=== PATIENT | female | born 1960 | race Caucasian/White ===

== ENCOUNTER 2020-03-20 09:50 | Observation (INO) | payer BC ==
[~2020-03-20] VITALS: Ht 168.9 cm; Wt 73.6 kg
--- NOTE | 2020-03-20 09:56 | PHYS DOC ---
Past History Additional Past Medical Histor: syncope Smoking: Non-smoker Drug Use: None General Adult EDM: Chief Complaint: SYNCOPE HPI: HPI: Patient is a 52-year-old female who arrives with a chief complaint of a near syncopal event. Patient had multiple episodes about a month ago and saw her primary physician who hooked up with event monitor. Patient had a minor episode about a week ago and then today at work had an episode where she felt dizzy and lightheaded and almost passed out. Patient denies any nausea vomiting. Patient denies any recent illnesses such as fever, chills, cough or shortness of breath. Patient denies any pain including chest pain or headache. Patient is feeling almost back to normal at this time. Review of Systems: Review of Systems: Constitutional: Denies fever or chills Eyes: Denies change in visual acuity HENT: Denies nasal congestion or sore throat Respiratory: Denies cough or shortness of breath Cardiovascular: Denies chest pain or edema GI: Denies abdominal pain, nausea, vomiting, bloody stools or diarrhea : Denies dysuria Musculoskeletal: Denies back pain or joint pain Integument: Denies rash Neurologic: Denies headache, focal weakness or sensory changes but patient had some transient dizziness which is since resolved Endocrine: Denies polyuria or polydipsia Lymphatic: Denies swollen glands Psychiatric: Denies depression or anxiety Current Medications: Current Meds: Laboratory Tests Test 03/20/20 10:13 03/20/20 10:16 Urine Collection Type Void Urine Color Yellow Urine Clarity Clear Urine pH 5.5 Urine Specific [place] 1.020 Urine Protein Neg Urine Glucose (UA) Neg mg/dL Urine Ketones (Stick) Neg mg/dL Urine Blood Trace Urine Nitrite Neg Urine Bilirubin Neg Urine Urobilinogen Dipstick 0.2 mg/dL Urine Leukocyte Esterase Mod Urine RBC Rare /HPF Urine WBC 5-10 /HPF Urine Squamous Epithelial Cells Few /LPF Urine Transitional Epithelial Cells Occ /LPF Urine Bacteria 0 /HPF White Blood Count 4.1 x10^3/uL Red Blood Count 4.83 x10^6/uL Hemoglobin 14.2 g/dL Hematocrit 43.2 % Mean Corpuscular Volume 89 fL Mean Corpuscular Hemoglobin 30 pg Mean Corpuscular Hemoglobin Concent 33 g/dL Red Cell Distribution Width 13.6 % Platelet Count 262 x10^3/uL Neutrophils (%) (Auto) 52 % Lymphocytes (%) (Auto) 39 % Monocytes (%) (Auto) 6 % Eosinophils (%) (Auto) 2 % Basophils (%) (Auto) 1 % Neutrophils # (Auto) 2.2 x10^3uL Lymphocytes # (Auto) 1.6 x10^3/uL Monocytes # (Auto) 0.3 x10^3/uL Eosinophils # (Auto) 0.1 x10^3/uL Basophils # (Auto) 0.0 x10^3/uL Sodium Level 138 mmol/L Potassium Level 3.5 mmol/L Chloride Level 101 mmol/L Carbon Dioxide Level 29 mmol/L Anion Gap 8 Blood Urea Nitrogen 17 mg/dL Creatinine 0.6 mg/dL Estimated GFR (Cockcroft-Gault) 102.7 Glucose Level 100 mg/dL Calcium Level 8.8 mg/dL Physical Exam: PE: Constitutional: Well developed, well nourished, no acute distress, non-toxic appearance. [] HENT: Normocephalic, atraumatic, bilateral external ears normal, no trismus, nose normal. [] Eyes: PERRLA, EOMI, conjunctiva normal, no discharge. [] Neck: Normal range of motion, no tenderness, supple, no stridor. [] Cardiovascular:Heart rate regular rhythm, peripheral pulse intact cap refill is brisk Lungs & Thorax: Bilateral breath sounds clear, no respiratory distress Abdomen: soft, no tenderness, no masses, no pulsatile masses. [] Skin: Warm, dry, no erythema, no rash. [] Back: No tenderness, no CVA tenderness. [] Extremities: No tenderness, no cyanosis, no clubbing, ROM intact, no edema. [] Neurologic: Alert and oriented X 3, normal motor function, normal sensory function, no focal deficits noted. [] Psychologic: Affect normal, judgement normal, mood normal. [] Current Patient Data: Labs: Laboratory Tests Test 03/20/20 10:13 03/20/20 10:16 Urine Collection Type Void Urine Color Yellow Urine Clarity Clear Urine pH 5.5 Urine Specific [place] 1.020 Urine Protein Neg Urine Glucose (UA) Neg mg/dL Urine Ketones (Stick) Neg mg/dL Urine Blood Trace Urine Nitrite Neg Urine Bilirubin Neg Urine Urobilinogen Dipstick 0.2 mg/dL Urine Leukocyte Esterase Mod Urine RBC Rare /HPF Urine WBC 5-10 /HPF Urine Squamous Epithelial Cells Few /LPF Urine Transitional Epithelial Cells Occ /LPF Urine Bacteria 0 /HPF White Blood Count 4.1 x10^3/uL Red Blood Count 4.83 x10^6/uL Hemoglobin 14.2 g/dL Hematocrit 43.2 % Mean Corpuscular Volume 89 fL Mean Corpuscular Hemoglobin 30 pg Mean Corpuscular Hemoglobin Concent 33 g/dL Red Cell Distribution Width 13.6 % Platelet Count 262 x10^3/uL Neutrophils (%) (Auto) 52 % Lymphocytes (%) (Auto) 39 % Monocytes (%) (Auto) 6 % Eosinophils (%) (Auto) 2 % Basophils (%) (Auto) 1 % Neutrophils # (Auto) 2.2 x10^3uL Lymphocytes # (Auto) 1.6 x10^3/uL Monocytes # (Auto) 0.3 x10^3/uL Eosinophils # (Auto) 0.1 x10^3/uL Basophils # (Auto) 0.0 x10^3/uL Sodium Level 138 mmol/L Potassium Level 3.5 mmol/L Chloride Level 101 mmol/L Carbon Dioxide Level 29 mmol/L Anion Gap 8 Blood Urea Nitrogen 17 mg/dL Creatinine 0.6 mg/dL Estimated GFR (Cockcroft-Gault) 102.7 Glucose Level 100 mg/dL Calcium Level 8.8 mg/dL Vital Signs: Vital Signs Date Time Temp Pulse Resp B/P (MAP) Pulse Ox O2 Delivery O2 Flow Rate FiO2 03/20/20 11:22 52 14 157/75 (102) 97 Room Air EKG: EKG: EKG interpreted by me normal sinus rhythm with a rate of 63 left axis deviation, normal ST segments, normal intervals [] Radiology/Procedures: Radiology/Procedures: [] Heart Score: Risk Factors: Risk Factors: DM, Current or recent (<one month) smoker, HTN, HLP, family history of CAD, obesity. Risk Scores: Score 0 - 3: 2.5% MACE over next 6 weeks - Discharge Home Score 4 - 6: 20.3% MACE over next 6 weeks - Admit for Clinical Observation Score 7 - 10: 72.7% MACE over next 6 weeks - Early Invasive Strategies Course & Med Decision Making: Course & Med Decision Making Pertinent Labs and Imaging studies reviewed. (See chart for details) [] I personally called [employer] monitoring and spoke with the community engagement representative who said with her model that they were unable to remotely check for an arrhythmia and would have to check when the monitor symptomatic 60-year-old female presents with a near syncopal event. Patient has had several episodes of the last month with similar symptoms. Patient appears back to her normal baseline at the current time. I discussed the case with her primary care physician, Dr. CARRION who suggest admission to the hospital. Discussed case with Dr. Lawson who will admit. Dragon Disclaimer: Fady Disclaimer: This electronic medical record was generated, in whole or in part, using a voice recognition dictation system. Departure Departure: Impression: Primary Impression: Near syncope Disposition: ADMITTED INPT THIS HOSP Admitting Physician: Messi Lawson Condition: STABLE Referrals: KATALINA CARRION (PCP) SILVER JOVEL MD Mar 20, 2020 09:56
[2020-03-20 10:40] LABS: BASO % 1 % (0-3); EOS # 0.1 x10^3/uL (0.0-0.7); EOS % 2 % (0-3); HEMATOCRIT 43.2 % (36.0-47.0); HEMOGLOBIN 14.2 g/dL (12.0-15.5); LYMPH # 1.6 x10^3/uL (1.0-4.8); LYMPH % 39 % (24-48); MEAN CORPUSCULAR HEMOGLOBIN 30 pg (25-35); MEAN CORPUSCULAR HGB CONC 33 g/dL (31-37); MEAN CORPUSCULAR VOLUME 89 fL (79-100); MONO # 0.3 x10^3/uL (0.0-1.1); MONO % 6 % (0-9); NEUT # 2.2 x10^3uL (1.8-7.7); NEUT % 52 % (31-73); PLATELET COUNT 262 x10^3/uL (140-400); RED BLOOD COUNT 4.83 x10^6/uL (3.50-5.40); RED CELL DISTRIBUTION WIDTH 13.6 % (11.5-14.5); WHITE BLOOD COUNT 4.1 x10^3/uL (4.0-11.0)
[2020-03-20 10:46] LABS: CALCIUM 8.8 mg/dL (8.5-10.1); CREATININE 0.6 mg/dL (0.6-1.0); GFR 102.7; POTASSIUM 3.5 mmol/L (3.5-5.1)
[2020-03-20 10:49] LABS: CLARITY,URINE CLEAR; COLOR,URINE YELLOW
[2020-03-20 10:50] LABS: BACTERIA,URINE 0 /HPF (0-FEW); BILIRUBIN,URINE NEG (NEG); GLUCOSE,URINE NEG (NEG); NITRITE,URINE NEG (NEG); RBC,URINE RARE /HPF (0-2); SQUAMOUS EPITHELIAL CELL,UR FEW /LPF; UROBILINOGEN,URINE 0.2 mg/dL (0.2 mg/dL)
[2020-03-20] MEDS ORDERED: ONDANSETRON PF 4 MG/2 ML VIAL. IVP PRN (12:15)
--- NOTE | 2020-03-20 12:41 | RAD ---
Examination: XR CHEST 1V History: Reason: NEAR SYNCOPE, WEARS HEART MONITOR COULDN'T REMOVE / Spl. Instructions: / History: Comparison/Correlation: None Findings: Portable upright frontal view of the chest was obtained. Overlying electronic device at the left mid thoracic level obscures evaluation of the left perihilar lung field.. Heart size and pulmon ramo vasculature are normal. No infiltrate identified. No pneumothorax. Bony structures are intact. No pleural effusion. Impression: No suspicious process. Electronically signed by: Rom Kendall MD (03/20/2020 12:39 PM) [id number]
[2020-03-20 13:43] VITALS: BP 116/78
[2020-03-20 13:48] VITALS: BP_SYST 114; BP_SYST 129; BP_DIAS 74; BP_DIAS 77
--- NOTE | 2020-03-20 14:04 | NUR ---
NSG NOTE; ADMISSION ADMIT TO ROOM 111 AT 1255 FROM ED VIA CART C/O SYNCOPAL EPISODE AT WORK AFTER FEELING BRIEF DIZZINESS W/ FLUTTERY STOMACH SENSATIONS
[2020-03-20] MEDS ORDERED: LISD60CA PO (14:14)
--- NOTE | 2020-03-20 14:36 | EKG ---
[address] [address] Test Date: 2020-03-20 Test Time: 10:18:12 Pat Name: JOSHUA DEMPSEY Department: Room: Gender: F Vehicle Safety Inspector: SAMIR : 1960 Requested By: SILVER JOVEL Order Number: [id number] Reading MD: Measurements Intervals [place] Rate: 63 P: 50 TN: 170 QRS: -28 QRSD: 100 T: 28 QT: 424 QTc: 437 Interpretive Statements SINUS RHYTHM LEFTWARD AXIS QRS(T) CONTOUR ABNORMALITY CONSISTENT WITH ANTEROSEPTAL INFARCT PROBABLY OLD ABNORMAL ECG RI6.02 No previous ECG available for comparison
--- NOTE | 2020-03-20 16:22 | PDOC2 ---
CARDIAC CONSULT DATE OF CONSULT DOS: DATE: 03/20/20 TIME: 16:17 REASON FOR CONSULT Reason for Consult Near syncope REFERRING PHYSICIAN Referring Physician Dr. Santana SOURCE Source: Chart review, Patient HPI History of Present Illness The patient is a 60-year-old female who was admitted from the emergency room for episodes of near syncope. Patient reports that she had multiple episodes of near syncope starting approximately 1 month ago. Her first two eposodes were on a plane returning from [place] and she reports two episodes of syncope. She has not had other episodes of syncope since that time but has had near syncope. An outpatient monitor was placed but no readings are available. She also had an episode a week o ago and then a more severe episode today. She denies chest pain or shortness of breath. EKG shows a sinus rhythm. Initial labs include a normal troponin, potassium of 3.5, creatinine 0.6. Chest x-ray is clear. Glucose level 100. H&H of 14.2 and 43.2. PAST MEDICAL HISTORY Cardiovascular: HTN, Other (Near syncope) FAMILY HISTORY Family History: Hypertension SOCIAL HISTORY Smoke: No CURRENT MEDICATIONS Current Medications Current Medications Ondansetron HCl (Zofran) 4 mg PRN Q4HRS PRN IVP NAUSEA/VOMITING; Start 03/20/20 at 12:15; Stop 03/21/20 at 12:14 Active Scripts Active Reported Vyvanse (Lisdexamfetamine Dimesylate) 60 Mg Capsule 1 Cap PO [id number] MDD 1 Capsule(s) ALLERGIES Allergies: Coded Allergies: No Known Drug Allergies (Unverified , 03/20/20) ROS General: YES: Malaise Cardiovascular: yes: Lt Headedness, Other (Near syncope) PHYSICAL EXAM General: Alert, Oriented X3 HEENT: Atraumatic Lungs: Clear to auscultation Heart: Regular rate Abdomen: Normal bowel sounds VITALS Vital Signs Vital Signs Date Time Temp Pulse Resp B/P (MAP) Pulse Ox O2 Delivery O2 Flow Rate FiO2 03/20/20 14:00 Room Air 03/20/20 13:48 64 20 129/77 (94) 95 03/20/20 13:43 97.5 LABS LABS Laboratory Tests Test 03/20/20 10:13 03/20/20 10:16 Urine Collection Type Void Urine Color Yellow Urine Clarity Clear Urine pH 5.5 Urine Specific [place] 1.020 Urine Protein Neg (NEG-TRACE) Urine Glucose (UA) Neg mg/dL (NEG) Urine Ketones (Stick) Neg mg/dL (NEG) Urine Blood Trace (NEG) Urine Nitrite Neg (NEG) Urine Bilirubin Neg (NEG) Urine Urobilinogen Dipstick 0.2 mg/dL (0.2 mg/dL) Urine Leukocyte Esterase Mod (NEG) Urine RBC Rare /HPF (0-2) Urine WBC 5-10 /HPF (0-4) Urine Squamous Epithelial Cells Few /LPF Urine Transitional Epithelial Cells Occ /LPF Urine Bacteria 0 /HPF (0-FEW) White Blood Count 4.1 x10^3/uL (4.0-11.0) Red Blood Count 4.83 x10^6/uL (3.50-5.40) Hemoglobin 14.2 g/dL (12.0-15.5) Hematocrit 43.2 % (36.0-47.0) Mean Corpuscular Volume 89 fL (79-100) Mean Corpuscular Hemoglobin 30 pg (25-35) Mean Corpuscular Hemoglobin Concent 33 g/dL (31-37) Red Cell Distribution Width 13.6 % (11.5-14.5) Platelet Count 262 x10^3/uL (140-400) Neutrophils (%) (Auto) 52 % (31-73) Lymphocytes (%) (Auto) 39 % (24-48) Monocytes (%) (Auto) 6 % (0-9) Eosinophils (%) (Auto) 2 % (0-3) Basophils (%) (Auto) 1 % (0-3) Neutrophils # (Auto) 2.2 x10^3uL (1.8-7.7) Lymphocytes # (Auto) 1.6 x10^3/uL (1.0-4.8) Monocytes # (Auto) 0.3 x10^3/uL (0.0-1.1) Eosinophils # (Auto) 0.1 x10^3/uL (0.0-0.7) Basophils # (Auto) 0.0 x10^3/uL (0.0-0.2) Sodium Level 138 mmol/L (136-145) Potassium Level 3.5 mmol/L (3.5-5.1) Chloride Level 101 mmol/L (98-107) Carbon Dioxide Level 29 mmol/L (21-32) Anion Gap 8 (6-14) Blood Urea Nitrogen 17 mg/dL (7-20) Creatinine 0.6 mg/dL (0.6-1.0) Estimated GFR (Cockcroft-Gault) 102.7 Glucose Level 100 mg/dL (70-99) Calcium Level 8.8 mg/dL (8.5-10.1) Troponin I Quantitative < 0.017 ng/mL (0-0.055) IMAGES IMAGES Checks x-ray with no acute processes. EKG EKG Sinus rhythm. No ischemic changes. No arrhythmias. ASSESSMENT/PLAN Assessment/Plan 1. Near syncope. Lab testing is normal. EKG is normal. Chest x-ray is normal. As noted above patient had episodes approximately a month ago that started with two episodes of full syncope on a plane. She has had episodes of near syncope since that time. She is in a sinus rhythm at this time. Her monitor is in place but is a mail in device so we have no readings. Would continue to monitor overnight. If stable the patient could go home tomorrow. I would have her mail in her monitor tomorrow and follow up with her primary post DC. She could also be seen in our office in about a week. SMOOTH THAKUR MD Mar 20, 2020 16:22
--- NOTE | 2020-03-20 18:00 | HP ---
ADMIT DATE: 03/20/2020 HISTORY OF PRESENT ILLNESS: The patient is a 60-year-old female patient who presented to the Emergency Room with a chief complaint of a near-syncopal event. The patient had multiple episodes about a month ago and so her primary care physician who hooked her up with an event monitor. The patient had a minor episode about a week ago specifically on 03/14 and today at work had an episode where she felt dizzy and lightheaded and almost passed out. On her way out, she actually fell but then managed to catch her before she fell to the ground and did not hit her head. She has another episode on 03/01/2020 during the flight when she actually had 2 syncopal episodes, started some dizziness and nausea and then the patient has fainted in the airplane and according to her loss of consciousness and then she came around and again fainted another time and then her nausea has resolved. During all this episode, she has never bitten her tongue nor has had become incontinent of bowel and bladder. She was extensively investigated in the Emergency Room and apparently her EKG showed that she was in sinus rhythm at a rate of 63 beats per minute with left axis deviation, normal ST segment and normal intervals. Apparently, the ER physician spoke with the passenger service representative Angelo guthrie who said that her model is unable to remotely check it for arrhythmia and would have to be checked when the monitor is sent back to them and her orthostatics were checked and there is no evidence of postural hypertension. The ER physician spoke with her primary care physician, Dr. Dolly Arreaga who requested that she gets admitted to [facility] for close monitoring. PAST MEDICAL HISTORY: Unremarkable. PAST SURGICAL HISTORY: Significant for left total hip arthroplasty. She has also cervical spine fusion at C6-C7 and arthroscopic surgery of the right knee. ALLERGIES: She has no known drug allergies. MEDICATIONS: She is currently on Vyvanse for her ADHD. She is also on probiotic. FAMILY HISTORY: She has 3 brothers, all younger. One brother has diabetes and apparently fell from a roof and broke his back. The other 2 are healthy. Her father is alive at age of 77, known to have hypertension. Mother is alive and healthy. SOCIAL HISTORY: She is . She has a son and a daughter. She never smoked, does not drink alcohol or use recreational drugs. 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 REVIEW OF SYSTEMS: As per history of present illness. PHYSICAL EXAMINATION: GENERAL: On arrival to the Emergency Room, she looked well and was clearly in no apparent respiratory distress. No pallor, jaundice, cyanosis or thyromegaly. No jugular venous distention or limb edema. VITAL SIGNS: Her heart rate was 60, blood pressure was 150/71, temperature was 97.5, respiratory rate was 21 and oxygen saturation was 98%. While sitting, her blood pressure dropped down to 116/79 and I do not see any measurements standing. HEAD, EYES, EARS, NOSE AND THROAT: Showed normocephalic, atraumatic. NECK: Supple. HEART: Showed normal first and second heart sounds. No gallop or murmur. CHEST: Clear to auscultation. No crepitation or rhonchi. ABDOMEN: Scaphoid, soft, nontender. NEUROLOGICALLY: She is grossly intact. LABORATORY DATA: Her lab work showed a white cell count 4000, hemoglobin 14, hematocrit 43, MCV 89 and platelet count of 262,000. Serum sodium was 138, potassium 3.5, chloride 101, bicarbonate 29, anion gap of 8, BUN 17, creatinine 0.6, estimated GFR was 102 mL per minute. Her glucose was 100, calcium was 8.8. Her urinalysis essentially unremarkable. Her chest x-ray showed that the heart size and pulmonary vasculature are normal, no infiltrate identified. No pneumothorax. Bony structures are intact. No pleural effusion. ASSESSMENT AND PLAN: The patient will be admitted to a telemetry bed, will be monitored. The length of monitoring is not clear to me. We have already consulted our quality control director and obviously we will decide further management according to his recommendation. BRIGITTE JIMENEZ MD DR: YARELIS/willard JOB#: [id number] / [id number]
[2020-03-20 19:49] VITALS: BP 121/76
[2020-03-20 23:14] VITALS: BP 114/66
[2020-03-21 05:52] VITALS: BP 97/62
--- NOTE | 2020-03-21 06:47 | NUR ---
Patient slept soundly all night. She has no complaints. She states, "Every time I've fainted, I've been wearing a mask." Anxiety levels discussed with the patient. She says she stays hydrated. Will continue to monitor.
[2020-03-21 11:05] VITALS: BP 122/72
--- NOTE | 2020-03-21 14:40 | NUR ---
PATIENT IS DISCHARGE HOME WITH SELF CARE. PATIENT IS STABLE AT TIME OF DISCHARGE. PATIENTS IV IS REMOVED AND TELEMONITOR DC'D SHARDA IS GIVEN ALL DISCHARGE AND FOLLOW UP INSTRUCTIONS. PATIENT AMBULATED OFF OF UNIT ACCOMPANIED BY STAFF.
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
== END 2020-03-21 14:40 | disposition home or self-care (01) ==
LOC: ER 09:50 → 1 SOUTH 12:00 → ER 12:50
PROVIDERS: ADMIT Internal Medicine; ATTEND Internal Medicine
DX: R55 Syncope and collapse (principal); F90.9 Attention-deficit hyperactivity disorder, unspecified type; I10 Essential (primary) hypertension; Z96.642 Presence of left artificial hip joint; Z98.890 Other specified postprocedural states; Z79.899 Other long term (current) drug therapy; W19.XXXA Unspecified fall, initial encounter; Y93.89 Activity, other specified; Y92.89 Other specified places as the place of occurrence of the external cause; Y99.8 Other external cause status
CPT/HCPCS: 36415; 71045; 80048; 81001; 84484; 85025; 87086; 93005; 99285; G0378; G0379

== ENCOUNTER → 2020-07-30 | Outpatient (CLI) | payer BC ==
[~2020-07-30] MED LIST: LISD60CA PO
--- NOTE | 2020-07-31 10:24 | RAD ---
EXAM: Bilateral digital screening mammogram with tomosynthesis. HISTORY: 60-year-old female presents for screening mammography. TECHNIQUE: Full-field digital craniocaudal and mediolateral oblique 2D and 3D tomosynthesis images of both breasts are obtained for evaluation. Computer aided detection was applied. COMPARISON: 05/12/2018 BREAST PARENCHYMAL DENSITY: Level B - Scattered fibroglandular densities. FINDINGS: There is no new suspicious mass, microcalcification or region of architectural distortion. There is benign asymmetry within the medial aspect of the left breast which is slightly more conspicu ous due to differences in imaging technique. There is no suspicious correlate on tomosynthesis images or between projections. IMPRESSION: BI-RADS Category 2: Benign finding(s). RECOMMENDATION: Annual mammography is recommended. If your mammogram demonstrates that you have dense breast tissue, which could hide abnormalities, and if you have other risk factors for breast cancer that have been identified, you might benefit from s upplemental screening tests that may be suggested by your ordering physician. Dense breast tissue, i n and of itself, is a relatively common condition. This information is not provided to cause undue c oncern, but rather to raise your awareness and to promote discussion with your physician regarding th e presence of other risk factors, in addition to dense breast tissue. A report of your mammography re sults will be sent to you and your physician. You should contact your physician if you have any ques tions or concerns regarding this report. Mammography is a sensitive method for finding small breast cancers, but it does not detect them all a nd is not a substitute for careful clinical examination. A negative mammogram does not negate a clin ically suspicious finding and should not result in delay in biopsying a clinically suspicious abnorma lity. PQRS compliance statement - Patient information was entered into a reminder system with a target due date for the next mammogram. "Our facility is accredited by the [employer] Mammography Program." Electronically signed by: Fariba Guerrero MD (07/31/2020 10:21 AM) [id number]
== END ==
LOC: MAMMO 08:55
PROVIDERS: ATTEND Family Medicine
DX: Z12.31 Encounter for screening mammogram for malignant neoplasm of breast (principal)
CPT/HCPCS: 77063; 77067

== ENCOUNTER 2020-12-13 02:48 | Emergency (ER) | payer BC ==
[~2020-12-13] VITALS: Ht 168.9 cm; Wt 73.6 kg
--- NOTE | 2020-12-13 02:53 | PHYS DOC ---
Past History Past Medical History: Other Additional Past Medical Histor: syncope (RIAN TRIANA MD) Past Surgical History: Other Additional Past Surgical Histo: CERVICAL FUSION; LEFT TOTAL HIP; RIGHT KNEE; (RAIN TRIANA MD) Smoking: Non-smoker Alcohol Use: None Drug Use: None (RIAN TRIANA MD) General Adult HPI: HPI: ".. I ve been hurting alll night... It started after.. ..dinner.....here in pit of my stomach.. and tequila to right.. I ve never had this before.. " Patient is a 60 year old female who presents with above hx and complaints of abdomen pain. Patient localizes her pain to epigastric area and some radiation to the right. Pt. rated pain as 9-10/10 prior to Fentanyl given by paramedics. Patient denies any history of trauma. No history of bad food intake. Patient denies any history of depression. No recent travel. No specific ill contacts. Patient has past medical history of left hip replacement, cervical spine fusion at C6 and 7. And arthroscopic surgery right knee. Patient does have a history of ADHD. Patient pt.follows with Dr. Moy (RIAN TRIANA MD) Review of Systems: Review of Systems: Constitutional: Denies fever or chills Eyes: Denies change in visual acuity HENT: Denies nasal congestion or sore throat Respiratory: Denies cough or shortness of breath Cardiovascular: Denies chest pain or edema GI: Complains of abdominal pain, nausea,. Denies vomiting, bloody stools or diarrhea : Denies dysuria Musculoskeletal: Denies back pain or joint pain Integument: Denies rash Neurologic: Denies headache, focal weakness or sensory changes Endocrine: Denies polyuria or polydipsia Lymphatic: Denies swollen glands Psychiatric: Denies depression or anxiety (RIAN TRIANA MD) Family History: Family History: She has 3 younger brothers. 1 brother has diabetes as you are healthy. Father is alive at age 77 history of hypertension mother is healthy. (RIAN TRIANA MD) Current Medications: Current Meds: See nursing for home meds. (RIAN TRIANA MD) Allergies: Allergies: Allergies Coded Allergies Type Severity Reaction Last Updated Verified No Known Drug Allergies 03/20/20 No (RIAN TRIANA MD) Physical Exam: PE: Constitutional: in acute distress, non-toxic appearance. [] HENT: Normocephalic, atraumatic, bilateral external ears normal, oropharynx moist, no oral exudates, nose normal. [] Eyes: PERRLA, EOMI, conjunctiva normal, no discharge. [] Neck: Normal range of motion, no tenderness, supple, no stridor. [] Surgical scar Cardiovascular: Bradycardia heart rate regular rhythm, no murmur [] Lungs & Thorax: Bilateral breath sounds equal at apex auscultation [] Abdomen: Bowel sounds decreased, soft, epigastric and right upper quadrant tenderness, no masses, no pulsatile masses. Bound to right upper quadrant. Skin: Warm, dry, no erythema, no rash. [] Back: No tenderness, no CVA tenderness. [] Extremities: No tenderness, no cyanosis, no clubbing, ROM intact, no edema. No cording. No psoas sign. Neurologic: Alert and oriented X 3, moves all extremities on request, has distal sensory, no focal deficits noted. [] Psychologic: Affect anxious, judgement normal, mood normal. [] (RIAN TRIANA MD) EKG: EKG: My interpretation EKG shows a sinus rhythm at 51 bpm. No acute morphology. [] (RIAN TRIANA MD) Radiology/Procedures: Radiology/Procedures: [][place] [id number] IMAGING REPORT Signed PATIENT: JOSHUA DEMPSEY ACCOUNT: [id number] : 1960 LOCATION: ER AGE: 60 SEX: F EXAM STATUS: REG ER ORD. PHYSICIAN: RIAN TRIANA MD REASON: pain PROCEDURE: ACUTE ABDOMEN SERIES Exam: Chest and abdominal radiographs Indication: Reason: pain / Spl. Instructions: / History: . Comparison: Unavailable. Findings: CHEST: Normal cardiomediastinal silhouette. No focal airspace consolidation, pn eumothorax or pleural effusion. No acute osseous process. Partially visualized ACDF. ABDOMEN: Nonobstructed bowel gas pattern. There is moderate amount of stool within the right hemiabdomen and pelvis with air noted in the rectum. No pathologic calcifications. No free intra-abdominal air. Acute osseous process. Normal appearance of left total hip arthroplasty. Impression: 1. No acute cardiopulmonary reprocess. 2. Nonobstructive bowel gas pattern. Electronically signed by: Cyndie Sanderson DO (12/13/2020 3:40 AM) [facility] DICTATED AND SIGNED BY: CYNDIE SANDERSON DO DATE: 12/13/20336 CC: RIAN TRIANA MD; KATALINA CARRION ~MTH0 0 (RIAN TRIANA MD) Radiology/Procedures: IMAGING REPORT Signed PATIENT: JOSHUA DEMPSEY ACCOUNT: [id number] : 1960 LOCATION: ER AGE: 60 SEX: F EXAM STATUS: REG ER ORD. PHYSICIAN: RIAN TRIANA MD REASON: pain PROCEDURE: ACUTE ABDOMEN SERIES Exam: Chest and abdominal radiographs Indication: Reason: pain / Spl. Instructions: / History: . Comparison: Unavailable. Findings: CHEST: Normal cardiomediastinal silhouette. No focal airspace consolidation, pneumothorax or pleural effusion. No acute osseous process. Partially visualized ACDF. ABDOMEN: Nonobstructed bowel gas pattern. There is moderate amount of stool within the right hemiabdomen and pelvis with air noted in the rectum. No pathologic calcifications. No free intra-abdominal air. Acute osseous process. Normal appearance of left total hip arthroplasty. Impression: 1. No acute cardiopulmonary reprocess. 2. Nonobstructive bowel gas pattern. Electronically signed by: Cyndie Sanderson DO (12/13/2020 3:40 AM) [facility] DICTATED AND SIGNED BY: CYNDIE SANDERSON DO DATE: 12/13/20336 CC: RIAN TRIANA MD; KATALINA CARRION ~MTH0 0 IMAGING REPORT Signed PATIENT: JOSHUA DEMPSEY ACCOUNT: [id number] : 1960 LOCATION: ER AGE: 60 SEX: F EXAM STATUS: REG ER ORD. PHYSICIAN: RIAN TRIANA MD REASON: abd. pain Rt upper, OMNI 300, 75ml & OMNI 240, 30ml PROCEDURE: CT ABD PELV W/ORAL&IV CONTRAST CT ABDOMEN+PELVIS W dated 12/13/2020 5:25 AM Indication:Reason: abd. pain Rt upper, OMNI 300, 75ml OMNI 240, 30ml / Spl. Instructions: / History: Comparison: No comparison is available. Technique: CT images were performed through the abdomen and pelvis following oral contrast ingestion and using an infusion of 75 mL Omnipaque 300. One or more of the following individualized dose reduction techniques were utilized for this examination: 1. Automated exposure control 2. Adjustment of the mA and/or kV according to patient size 3. Use of iterative reconstruction technique Findings: There is mild dependent atelectasis in the lower lobes. The lung bases otherwise are clear. The liver and spleen are homogeneous in density and normal in configuration. The gallbladder was mildly distended at the time of the exam. No calcified stones are seen. There may be a small amount of pericholecystic fluid, best seen on sagittal and coronal reconstructions. There is no obvious wall thickening of the gallbladder. Both kidneys enhance with contrast. No mass or obstruction is seen. The adrenal glands are not enlarged. The pancreas appears normal. No retroperitoneal or mesenteric adenopathy is seen. There is no apparent abdominal soft tissue mass or other inflammatory process. A normal appendix is seen crossing the midline. Images through the pelvis show no abnormality of the distal ureters or bladder. No pelvic or inguinal adenopathy is seen. The uterus and adnexal structures appear normal for age. There is no separate pelvic mass or inflammatory process. IMPRESSION: There may be a small amount of pericholecystic fluid. This could raise possibility of cholecystitis, although no calcified stones are seen and there is no obvious wall thickening. Ultrasound may be useful for further evaluation. No other acute abnormality is identified. Electronically signed by: Smooth Dow Jr., MD (12/13/2020 7:04 AM) [id number] DICTATED AND SIGNED BY: SMOOTH DOW Jr, MD DATE: 12/13/20 0658 CC: RIAN TRIANA MD; MAJOR MIGUEL DO; KATALINA CARRION ~MTH0 0 IMAGING REPORT Signed PATIENT: JOSHUA DEMPSEY ACCOUNT: [id number] : 1960 LOCATION: ER AGE: 60 SEX: F EXAM STATUS: REG ER ORD. PHYSICIAN: MAJOR MIGUEL DO REASON: ruq pain, r/o acute cholecystitis; Abnormal CT scan PROCEDURE: ABDOMEN OR LWR BACK [facility] Abdominal ultrasound 12/13/2020. Reason for exam: Right upper quadrant pain. Abnormal CT. FINDINGS: The liver is homogeneous in echotexture. No intra or extrahepatic ductal dilatation is seen. Gallbladder was distended at the time of the exam. It shows multiple stones, and there is a trace of adjacent fluid. Gallbladder wall thickness is normal at about 2.5 mm. The right kidney and pancreas were partly obscured by bowel gas, but were shown on prior CT. The abdominal aorta and inferior vena cava also were not well seen. IMPRESSION: Distended gallbladder with cholelithiasis and mild pericholecystic fluid. Findings could indicate early cholecystitis. Electronically signed by: Smooth Dow Jr., MD (12/13/2020 8:43 AM) [id number] DICTATED AND SIGNED BY: SMOOTH DOW Jr, MD DATE: 12/13/20 0841 CC: MAJOR MIGUEL DO; KATALINA CARRION ~MTH0 0 (MAJOR MIGUEL DO) Heart Score: C/O Chest Pain: No HEART Score for Chest Pain: HEART Score for Chest Pain Response (Comments) Value History Slighlty/Non-Suspicious 0 ECG Normal 0 Age >45 - < 65 1 Risk Factors No Risk Factors 0 Troponin < Normal Limit 0 Total 1 Risk Factors: Risk Factors: DM, Current or recent (<one month) smoker, HTN, HLP, family history of CAD, obesity. Risk Scores: Score 0 - 3: 2.5% MACE over next 6 weeks - Discharge Home Score 4 - 6: 20.3% MACE over next 6 weeks - Admit for Clinical Observation Score 7 - 10: 72.7% MACE over next 6 weeks - Early Invasive Strategies (RIAN TRIANA MD) Course & Med Decision Making: Course & Med Decision Making Pertinent Labs and Imaging studies reviewed. (See chart for details) Patient without pain at [address] results. Endorsed to Dr. Miguel at shift change she will make disposition. Impression: 1. Abdomen Pain 2. Elevated AST 152, AlT 95 3. Billary Colic [] (RIAN TRIANA MD) Course & Med Decision Making Concern for acute calculus cholecystitis in the setting of mild transaminitis. Patient's analgesia well controlled. Does have positive Fish sign. Started on antibiotics. Patient is hemodynamically stable and afebrile. Rapid covid test negative. [facility] is full. Patient was accepted at [facility] for full surgical consultation and inpatient management. Patient stable at time of transfer and agrees to this plan. I have spoken with the patient and/or caregivers. I have explained the patient's condition, diagnosis and treatment plan based on the information available to me at this time. I have answered the patient's and/or caregivers questions and answered any concerns. The patient and/or caregivers have as good an understanding of the patient's diagnosis, condition and treatment plan as can be expected at this point. The patient has been stabilized within the capability of the emergency department. The patient will be transported for further care and management or will be moved to an observation or inpatient service. I have communicated with the staff or medical practitioner taking over this patient's care. (MAJOR MIGUEL DO) Dragon Disclaimer: Dragon Disclaimer: This electronic medical record was generated, in whole or in part, using a voice recognition dictation system. (RIAN TRIANA MD) Departure Departure: Impression: Primary Impression: Acute calculous cholecystitis Additional Impression: Transaminitis Disposition: 02 SHORT TERM [facility] (Accepted at [facility] h ospital by Dr. Jacquelyn Strong, I d/w Dr. Kaplan (resident)) Condition: STABLE Referrals: KATALINA CARRION (PCP) RIAN TRIANA MD Dec 13, 2020 02:53 MAJOR MIGUEL DO Dec 13, 2020 09:10
[2020-12-13] MEDS ORDERED: MAGNESIUM HYDROXIDE 2,400 MG/30 ML ORAL.SUSP. ONE (03:24)
[2020-12-13 03:30] LABS: BASO % 0 % (0-3); EOS # 0.1 x10^3/uL (0.0-0.7); EOS % 1 % (0-3); HEMATOCRIT 36.8 % (36.0-47.0); HEMOGLOBIN 12.5 g/dL (12.0-15.5); LYMPH # 1.8 x10^3/uL (1.0-4.8); LYMPH % 16 % (24-48); MEAN CORPUSCULAR HEMOGLOBIN 30 pg (25-35); MEAN CORPUSCULAR HGB CONC 34 g/dL (31-37); MEAN CORPUSCULAR VOLUME 89 fL (79-100); MONO # 0.5 x10^3/uL (0.0-1.1); MONO % 4 % (0-9); NEUT # 8.5 x10^3uL (1.8-7.7); NEUT % 78 % (31-73); PLATELET COUNT 272 x10^3/uL (140-400); RED BLOOD COUNT 4.12 x10^6/uL (3.50-5.40); RED CELL DISTRIBUTION WIDTH 13.6 % (11.5-14.5); WHITE BLOOD COUNT 10.9 x10^3/uL (4.0-11.0)
[2020-12-13] MEDS ORDERED: MAGNESIUM HYDROXIDE 2,400 MG/30 ML ORAL.SUSP. PO ONE (03:30)
[2020-12-13] MEDS ORDERED: PANTOPRAZOLE IV 40 MG VIAL. IVP ONE (03:30)
[2020-12-13] MEDS ORDERED: KETOROLAC 30 MG/ML VIAL. IVP ONE (03:30)
[2020-12-13] MEDS ORDERED: IV RINGERS SOLUTION,LACTATED 1,000 ML IV SCH (03:30)
[2020-12-13] MEDS ORDERED: ONDANSETRON PF 4 MG/2 ML VIAL. IVP ONE (03:30)
--- NOTE | 2020-12-13 03:42 | RAD ---
Exam: Chest and abdominal radiographs Indication: Reason: pain / Spl. Instructions: / History: . Comparison: Unavailable. Findings: CHEST: Normal cardiomediastinal silhouette. No focal airspace consolidation, pneumothorax or pleural effusion. No acute osseous process. Partially visualized ACDF. ABDOMEN: Nonobstructed bowel gas pattern. There is moderate amount of stool within the right hemiabdo men and pelvis with air noted in the rectum. No pathologic calcifications. No free intra-abdominal ai r. Acute osseous process. Normal appearance of left total hip arthroplasty. Impression: 1. No acute cardiopulmonary reprocess. 2. Nonobstructive bowel gas pattern. Electronically signed by: Fritz Sanderson DO (12/13/2020 3:40 AM) [facility]
[2020-12-13 03:43] LABS: CALCIUM 7.9 mg/dL (8.5-10.1); CREATININE 0.3 mg/dL (0.6-1.0); GFR 228.5
[2020-12-13 03:48] LABS: ALBUMIN 3.2 g/dL (3.4-5.0); DIRECT BILIRUBIN 0.1 mg/dL (0.0-0.2); TOTAL BILIRUBIN 0.8 mg/dL (0.2-1.0); TOTAL PROTEIN 6.1 g/dL (6.4-8.2)
[2020-12-13 04:01] LABS: POTASSIUM 4.5 mmol/L (3.5-5.1)
[2020-12-13] MEDS ORDERED: IOHEXOL 240 MG/ML 50ML VIAL. ONE (04:19)
[2020-12-13] MEDS ORDERED: CONTRAST GIVEN. MC PRN (04:30)
[2020-12-13 04:33] LABS: BARBITURATES NEG (NEG); BENZODIAZEPINES NEG (NEG); CANNABINOIDS NEG (NEG); COCAINE NEG (NEG); METHADONE NEG (NEG); OPIATES NEG (NEG); PHENCYCLIDINE NEG (NEG)
[2020-12-13 04:36] LABS: BACTERIA,URINE FEW /HPF (0-FEW); BILIRUBIN,URINE NEG (NEG); CLARITY,URINE HAZY; COLOR,URINE YELLOW; GLUCOSE,URINE NEG (NEG); NITRITE,URINE NEG (NEG); RBC,URINE 0 /HPF (0-2); SQUAMOUS EPITHELIAL CELL,UR FEW /LPF
[2020-12-13 04:38] LABS: AMPHETAMINE/METHAMPHETAMINE POS (NEG)
--- NOTE | 2020-12-13 04:48 | EKG ---
[facility] ED [facility] [address] [place] [id number] Test Date: 2020-12-13 Test Time: 02:50:53 Pat Name: JOSHUA DEMPSEY Department: Room: Gender: F Account Analyst: : 1960 Requested By: RIAN TRIANA Order Number: [id number] Reading MD: Jermaine Hobbs Measurements Intervals [place] Rate: 51 P: VA: QRS: -17 QRSD: 102 T: 11 QT: 508 QTc: 470 Interpretive Statements SINUS RHYTHM LEFTWARD AXIS T ABNORMALITY IN ANTEROLATERAL LEADS ABNORMAL ECG Electronically Signed On 12-15-2020 13:26:19 CDT by Jermaine Hobbs
[2020-12-13] MEDS ORDERED: IOHEXOL 240 MG/ML 50ML VIAL. PO ONE (05:00)
[2020-12-13] MEDS ORDERED: IOHEXOL 300 MG/ML 75 ML VIAL. IV ONE (05:00)
--- NOTE | 2020-12-13 07:06 | RAD ---
CT ABDOMEN+PELVIS W dated 12/13/2020 5:25 AM Indication:Reason: abd. pain Rt upper, OMNI 300, 75ml OMNI 240, 30ml / Spl. Instructions: / Histor y: Comparison: No comparison is available. Technique: CT images were performed through the abdomen and pelvis following oral contrast ingestion and using an infusion of 75 mL Omnipaque 300. One or more of the following individualized dose reduction techniques were utilized for this examinat ion: 1. Automated exposure control 2. Adjustment of the mA and/or kV according to patient size 3. Use of iterative reconstruction technique Findings: There is mild dependent atelectasis in the lower lobes. The lung bases otherwise are clear. The liver and spleen are homogeneous in density and normal in configuration. The gallbladder was mildly disten ded at the time of the exam. No calcified stones are seen. There may be a small amount of pericholecy stic fluid, best seen on sagittal and coronal reconstructions. There is no obvious wall thickening of the gallbladder. Both kidneys enhance with contrast. No mass or obstruction is seen. The adrenal gla nds are not enlarged. The pancreas appears normal. No retroperitoneal or mesenteric adenopathy is see n. There is no apparent abdominal soft tissue mass or other inflammatory process. A normal appendix i s seen crossing the midline. Images through the pelvis show no abnormality of the distal ureters or bladder. No pelvic or inguinal adenopathy is seen. The uterus and adnexal structures appear normal for age. There is no separate pe lvic mass or inflammatory process. IMPRESSION: There may be a small amount of pericholecystic fluid. This could raise possibility of cholecystitis, although no calcified stones are seen and there is no obvious wall thickening. Ultrasound may be usef ul for further evaluation. No other acute abnormality is identified. Electronically signed by: Cristhian Dow Jr., MD (12/13/2020 7:04 AM) [id number]
--- NOTE | 2020-12-13 08:45 | RAD ---
Abdominal ultrasound 12/13/2020. Reason for exam: Right upper quadrant pain. Abnormal CT. FINDINGS: The liver is homogeneous in echotexture. No intra or extrahepatic ductal dilatation is seen . Gallbladder was distended at the time of the exam. It shows multiple stones, and there is a trace of adjacent fluid. Gallbladder wall thickness is normal at about 2.5 mm. The right kidney and pancreas were partly obscured by bowel gas, but were shown on prior CT. The abdo mike aorta and inferior vena cava also were not well seen. IMPRESSION: Distended gallbladder with cholelithiasis and mild pericholecystic fluid. Findings could indicate early cholecystitis. Electronically signed by: Cristhian Dow Jr., MD (12/13/2020 8:43 AM) [id number]
[2020-12-13] MEDS ORDERED: IV NORMAL SALINE 50ML 50 ML ONE (09:48)
[2020-12-13] MEDS ORDERED: cefTRIAXone SODIUM 1 GM VIAL ONE (09:48)
[2020-12-13 11:59] VITALS: BP 108/74
--- NOTE | 2020-12-14 13:40 | NUR ---
IP: Informed pt of positive covid test and the need to quarantine for 10 days. Pt scheduled for surgery at 1700 today. Pt will notify surgeon and OP surgery center.
== END 2020-12-13 15:00 | disposition short-term general hospital (02) ==
LOC: ER 02:48
DX: K80.50 Calculus of bile duct without cholangitis or cholecystitis without obstruction (principal); R10.13 Epigastric pain; R10.11 Right upper quadrant pain; R79.89 Other specified abnormal findings of blood chemistry; Z20.822 Contact with and (suspected) exposure to COVID-19
CPT/HCPCS: 36415; 74022; 74177; 76705; 80048; 80076; 80307; 81001; 82150; 82550; 83690; 84484; 85025; 87086; 87426; 93005; 96361; 96365; 96368; 96375; 99285; C9113; C9803; J0696; J1885; J2405; J3490; J7120; Q9966; Q9967; U0003